=== PATIENT | female | born 1965 | race Caucasian/White ===

== ENCOUNTER 2018-02-15 13:48 | Day surgery (SDC) | payer OTHER ==
[2018-02-15] MEDS ORDERED: LIDOCAINE 2% MDV (20MG/ML) 20ML VIAL IV ONE (13:49)
[2018-02-15] MEDS ORDERED: PROPOFOL 10 MG/ML VIAL IV ONE (13:49)
--- NOTE | 2018-02-16 12:30 | Operative Note ---
DATE OF SURGERY: 02/15/2018 OPERATION: COLONOSCOPY with cold snare polypectomy x2. PREOPERATIVE DIAGNOSIS: Colon cancer screening. POSTOPERATIVE DIAGNOSIS: Rectal polyps, sigmoid polyp, and sigmoid diverticulosis. PROCEDURE: After informed consent was obtained from the patient, she was placed in the left lateral decubitus position in the endoscopy suite, sedated and monitored by the department of anesthesia. Digital rectal examination was unremarkable. A well-lubricated [id number] colonoscope was inserted into the rectum and advanced to the cecum. Preparation quality was good. The cecum, ileocecal valve, appendiceal orifice, ascending colon, transverse colon, and descending colon were free of inflammatory changes, mass lesions, or polyps. The sigmoid colon demonstrated scattered diverticula. There was also noted to be a 4 mm sessile sigmoid polyp which was removed with a cold snare. There were also scattered sigmoid diverticula. The rectum was unremarkable in forward but J-turn views did reveal a 4 mm polyp. The endoscope was straightened and this polyp was removed with a cold snare. Minimal bleeding was noted. The endoscope was straightened, the rectal ampulla deflated, and the endoscope was removed. RECOMMENDATIONS: I would suggest the patient follow a high-fiber diet, use a fiber supplement. I have strongly encouraged her to stop smoking. She will require repeat colonoscopy in 5-10 years pending tissue histology. As always, thank you for allowing me to participate in the healthcare of your patients. CC: Fer To, DO [facility]
== END 2018-02-15 15:24 | disposition home or self-care (01) ==
LOC: HOP 13:48
PROVIDERS: ATTEND Internal Medicine Gastroenterology
DX: Z12.11 Encounter for screening for malignant neoplasm of colon (principal); K63.5 Polyp of colon; D12.5 Benign neoplasm of sigmoid colon; K62.1 Rectal polyp; Z85.3 Personal history of malignant neoplasm of breast